=== PATIENT | female | born 1985 | race African-American/Black ===

== ENCOUNTER 2018-01-24 21:03 | Emergency (ER) | payer SELFPAY ==
[~2018-01-24] VITALS: Ht 165.1 cm; Wt 88.6 kg
[2018-01-24 21:06] VITALS: Ht 165.1 cm; Wt 88.6 kg
[2018-01-24] MEDS ORDERED: VITAMIN D250000 UNIT PO (21:07)
[2018-01-24 21:27] LABS: BASOPHILS 0.8 % (0-2); HEMATOCRIT 35.9 % (36.0-48.0); HEMOGLOBIN 11.7 g/dL (12-16); IMMATURE GRANULOCYTES 0.2 % (0-5); LYMPHOCYTES 52.9 % (15-50); MCH 30.2 pg (26.0-34.0); MCHC 32.6 g/dL (31.0-37.0); MCV 92.8 fL (80.0-100.0); MEAN PLATELET VOLUME 10.9 fL (7.4-10.4); MONOCYTES 8.7 % (2-11); NEUTROPHILS 34.4 % (40-80); PLATELET COUNT 243 10x3/uL (130-400); RBC 3.87 10x6/uL (4.00-5.40); RDW 14.1 % (11.5-14.5)
[2018-01-24 21:59] LABS: ALBUMIN 3.8 g/dL (3.4-5.0); ANION GAP 15.5 mmol/L (8-16); BILIRUBIN - TOTAL 0.18 mg/dL (0.2-1.3); CALCIUM 8.9 mg/dL (8.5-10.1); CARBON DIOXIDE 23.3 mmol/L (21.0-32.0); PROTEIN - SERUM 7.3 g/dL (6.4-8.2)
[2018-01-24 22:12] LABS: POTASSIUM - SERUM 2.8 mmol/L (3.5-5.1)
[2018-01-24 22:32] LABS: HCG URINE NEGATIVE (NEGATIVE)
[2018-01-24 22:33] LABS: APPEARANCE CLEAR (CLEAR); BILIRUBIN NEGATIVE (NEGATIVE); COLOR YELLOW (YELLOW); GLUCOSE NEGATIVE (NEGATIVE); KETONE NEGATIVE (NEGATIVE); NITRITE NEGATIVE (NEGATIVE); PROTEIN NEGATIVE (NEGATIVE); UROBILINOGEN NORMAL (NORMAL)
[2018-01-24 22:46] LABS: UDS - AMPHET NEGATIVE QUAL (NEGATIVE); UDS - BARB NEGATIVE QUAL (NEGATIVE); UDS - BENZO NEGATIVE QUAL (NEGATIVE); UDS - COCAINE NEGATIVE QUAL (NEGATIVE); UDS - OPIATE NEGATIVE QUAL (NEGATIVE); UDS - PCP NEGATIVE QUAL (NEGATIVE); UDS - THC POSITIVE QUAL (NEGATIVE)
[2018-01-24 23:03] VITALS: BP 122/80
== END 2018-01-24 23:03 | disposition home or self-care (01) ==
LOC: D.ER 21:03
PROVIDERS: Family Medicine
DX: R00.0 Tachycardia, unspecified (principal); E87.6 Hypokalemia; F12.929 Cannabis use, unspecified with intoxication, unspecified; R11.10 Vomiting, unspecified